=== PATIENT | male | born 1940 | race Caucasian/White ===

== ENCOUNTER 2021-07-08 12:04 | Emergency (ER) | payer OTHER ==
[2021-07-08 12:34] VITALS: BP 139/72; PULSE 95; BMI 20.3
[2021-07-08 13:14] LABS: BASO % 0.7 % (0-2.0); EOS % 1.6 % (0-4.5); HEMATOCRIT 36.3 % (35.4-49); HEMOGLOBIN 12.5 GM/dL (11.7-16.9); LYMPH % 13.4 % (8-40); MCHC 34.5 g/dl (32.0-35.9); MEAN CELL VOLUME 89.9 fl (80-96); MEAN PLT VOLUME 8.5 fl (7.5-11.1); NEUT % 75.3 % (42.8-82.8); PLATELET COUNT 171 10^3/uL (134-434); RBC 4.03 M/mm3 (4.00-5.60); RDW 14.3 % (11.9-15.9); WHITE BLOOD COUNT 5.8 K/mm3 (4.0-10.0)
[2021-07-08 13:38] LABS: CALCIUM 9.1 mg/dL (8.5-10.1)
[2021-07-08 13:39] LABS: ALBUMIN 3.8 g/dl (3.4-5.0)
[2021-07-08 13:43] LABS: BILIRUBIN,TOTAL 0.6 mg/dL (0.2-1); TOT PROT 7.2 g/dl (6.4-8.2)
[2021-07-08] MEDS ORDERED: SODIUM CHLORIDE 0.9% 1000 ML INFUS.BAG IV ONE (14:01)
[2021-07-08 14:41] LABS: PH,URINE 5.5 (5.0-8.0); URINE APPEARANCE CLEAR; URINE BILIRUBIN NEGATIVE (NEGATIVE); URINE COLOR YELLOW; URINE GLUCOSE (UA) NEGATIVE (NEGATIVE); URINE KETONE NEGATIVE (NEGATIVE); URINE LEUK ESTERASE NEGATIVE (NEGATIVE); URINE NITRITE NEGATIVE (NEGATIVE); URINE PROTEIN NEGATIVE (NEGATIVE); URINE UROBILINOGEN 0.2 mg/dL (0.2-1.0)
== END 2021-07-08 15:15 | disposition home or self-care (01) ==
LOC: JER 12:04
DX: S80.812A Abrasion, left lower leg, initial encounter (principal); W01.0XXA Fall on same level from slipping, tripping and stumbling without subsequent striking against object, initial encounter
CPT/HCPCS: 36415; 70450-TC; 72125-TC; 80053; 81003; 85025; 87086; 99285-25

== ENCOUNTER 2021-11-08 13:27 | Emergency (ER) | payer OTHER ==
[2021-11-08 13:36] VITALS: BP 126/60; PULSE 53; RESP 18; TEMP 97; BMI 20.9
== END 2021-11-08 15:45 | disposition home or self-care (01) ==
LOC: JERFT 13:27
DX: M25.511 Pain in right shoulder (principal); S50.01XA Contusion of right elbow, initial encounter; W01.0XXA Fall on same level from slipping, tripping and stumbling without subsequent striking against object, initial encounter
CPT/HCPCS: 70450-TC; 72125-TC; 73030-TC-RT-FY; 73070-TC-RT-FY; 99285-25

== ENCOUNTER 2022-05-16 10:40 | Observation (INO) | payer OTHER ==
[2022-05-16 11:14] VITALS: BMI 22.6
[2022-05-16] MEDS ORDERED: AZITHROMYCIN IVPB 500 MG in DEXTROSE 5%-WATER - 250 ML IVPB ONE (12:17)
[2022-05-16] MEDS ORDERED: CEFTRIAXONE 1,000 MG in DEXTROSE 5%-WATER - 50 ML IVPB ONE (12:17)
[2022-05-16 12:57] LABS: BASO % 0.1 % (0-2.0); HEMATOCRIT 37.4 % (35.4-49); MCH 30.5 pg (25.7-33.7); MCHC 34.6 g/dl (32.0-35.9); MEAN CELL VOLUME 88.1 fl (80-96); MEAN PLT VOLUME 8.9 fl (7.5-11.1); MONO % 6.9 % (3.8-10.2); PLATELET COUNT 159 10^3/uL (134-434); RBC 4.25 M/mm3 (4.00-5.60); RDW 14.1 % (11.9-15.9); WHITE BLOOD COUNT 8.7 K/mm3 (4.0-10.0)
[2022-05-16 13:21] LABS: ALBUMIN 3.3 g/dl (3.4-5.0); BLOOD UREA NITROGEN 29.4 mg/dL (7-18); CALCIUM 8.6 mg/dL (8.5-10.1); MAGNESIUM 2.1 mg/dL (1.8-2.4)
[2022-05-16 13:24] LABS: CREATININE 1.3 mg/dL (0.55-1.3)
[2022-05-16 13:26] LABS: BILIRUBIN,TOTAL 0.6 mg/dL (0.2-1)
[2022-05-16 13:30] LABS: LACTIC ACID 3.2 mmol/L (0.4-2.0)
[2022-05-16] MEDS ORDERED: SODIUM CHLORIDE 0.9% 1000 ML INFUS.BAG IV ONE ×2 (13:37→14:16)
[2022-05-16] MEDS ORDERED: CEFTRIAXONE 1 GM/50 ML BAG ONE (14:39)
[2022-05-16] MEDS ORDERED: AZITHROMYCIN IVPB 500 MG/250 ML BAG IVPB ONE (14:40)
[2022-05-16] MEDS ORDERED: IBUPROFEN 400 MG TABLET (FP) PO PRN (14:52)
[2022-05-16] MEDS ORDERED: guaiFENesin 200 MG/10 ML 10 ML UNIT-DOSE CUPS PO PRN (14:52)
[2022-05-16] MEDS ORDERED: LACTATED RINGERS SOLUTION 1,000 ML/1,000 ML INFUS.BAG IV SCH (15:00)
[2022-05-16 18:21] LABS: EPI CELLS 5 /uL (0-25.1); HYALINE CASTS 2 /uL (0-3.1); PH,URINE 5.5 (5.0-8.0); URINE APPEARANCE CLEAR; URINE BACTERIA 3 /uL (0-1359); URINE BILIRUBIN NEGATIVE (NEGATIVE); URINE COLOR DK YELLOW; URINE GLUCOSE (UA) NEGATIVE (NEGATIVE); URINE KETONE NEGATIVE (NEGATIVE); URINE LEUK ESTERASE NEGATIVE (NEGATIVE); URINE NITRITE NEGATIVE (NEGATIVE); URINE PROTEIN 1+ (NEGATIVE); URINE RBC 16 /uL (0-23.9); URINE UROBILINOGEN 0.2 mg/dL (0.2-1.0); URINE WBC 6 /uL (0-25.8)
[2022-05-16 18:51] LABS: LACTIC ACID 2.3 mmol/L (0.4-2.0)
[2022-05-16] MEDS: DOXYCYCLINE INJECTION 100 MG in DEXTROSE 5%-WATER 100 ML IVPB SCH (22:02)
[2022-05-17 08:58] LABS: BASO % 0.4 % (0-2.0); EOS % 1.4 % (0-4.5); HEMATOCRIT 32.8 % (35.4-49); HEMOGLOBIN 11.5 GM/dL (11.7-16.9); LYMPH % 15.6 % (8-40); MCH 30.9 pg (25.7-33.7); MCHC 35.2 g/dl (32.0-35.9); MEAN CELL VOLUME 87.7 fl (80-96); MEAN PLT VOLUME 8.9 fl (7.5-11.1); NEUT % 72.6 % (42.8-82.8); PLATELET COUNT 133 10^3/uL (134-434); RBC 3.74 M/mm3 (4.00-5.60); RDW 14.5 % (11.9-15.9); WHITE BLOOD COUNT 6.3 K/mm3 (4.0-10.0)
[2022-05-17 09:20] LABS: CALCIUM 7.9 mg/dL (8.5-10.1)
[2022-05-17 09:21] LABS: BLOOD UREA NITROGEN 19.9 mg/dL (7-18)
[2022-05-17 09:24] LABS: CREATININE 0.7 mg/dL (0.55-1.3)
[2022-05-17] MEDS: TAMSULOSIN HCL 0.4 MG CAP PO SCH (09:25)
[2022-05-17] MEDS: LORATADINE 10 MG TABLET PO SCH (09:25)
[2022-05-17] MEDS: FOLIC ACID 1 MG TABLET (FP) PO SCH (09:25)
[2022-05-17] MEDS: CEFTRIAXONE 1 GM in DEXTROSE 5%-WATER - 50 ML IVPB SCH (09:26)
[2022-05-17] MEDS: TOLTERODINE TARTRATE LA 4 MG CAP.SR.24H (FP) PO SCH (09:27)
[2022-05-17] MEDS: VITAMIN B COMPLEX W/C COMBO TABLET (FP) PO SCH (09:27)
[2022-05-17] MEDS ORDERED: BREXPIPRAZOLE 0.5 MG PO SCH (10:00)
[2022-05-17] MEDS: lamoTRIgine 100 MG TABLET PO SCH (10:14)
[2022-05-17] MEDS: DOXYCYCLINE INJECTION 100 MG in DEXTROSE 5%-WATER 100 ML IVPB SCH ×2 (10:19→21:50)
[2022-05-17] MEDS ORDERED: ALBUTEROL SO4 2.5/IPRATROPIUM 0.5 INH SOL 3 ML VIAL.NEB. NEB PRN (12:08)
[2022-05-17] MEDS ORDERED: POTASSIUM CHLORIDE ORAL LIQUID 20 MEQ/15 ML PO ONE (12:15)
[2022-05-17 18:35] VITALS: RESP 18
[2022-05-17] MEDS: HEPARIN NA (PORCINE) 5,000 UNITS/ML 1ML VIAL SQ SCH (21:49)
[2022-05-18 06:39] VITALS: BP 134/66; PULSE 66; TEMP 97.4
[2022-05-18] MEDS: FOLIC ACID 1 MG TABLET (FP) PO SCH (10:16)
[2022-05-18] MEDS: HEPARIN NA (PORCINE) 5,000 UNITS/ML 1ML VIAL SQ SCH (10:16)
[2022-05-18] MEDS: DOXYCYCLINE INJECTION 100 MG in DEXTROSE 5%-WATER 100 ML IVPB SCH (10:16)
[2022-05-18] MEDS: VITAMIN B COMPLEX W/C COMBO TABLET (FP) PO SCH (10:16)
[2022-05-18] MEDS: TOLTERODINE TARTRATE LA 4 MG CAP.SR.24H (FP) PO SCH (10:16)
[2022-05-18] MEDS: CEFTRIAXONE 1 GM in DEXTROSE 5%-WATER - 50 ML IVPB SCH (10:16)
[2022-05-18] MEDS: LORATADINE 10 MG TABLET PO SCH (10:17)
[2022-05-18] MEDS: lamoTRIgine 100 MG TABLET PO SCH (10:17)
[2022-05-18] MEDS: TAMSULOSIN HCL 0.4 MG CAP PO SCH (10:17)
== END 2022-05-18 14:44 | disposition home or self-care (01) ==
LOC: JER 10:40 → JERBED 13:42 → J5S 18:37
PROVIDERS: ADMIT Internal Medicine; ATTEND Internal Medicine
PROC: 3E03329 Introduction of Other Anti-infective into Peripheral Vein, Percutaneous Approach (ICD-10-PCS; principal; 2022-05-16)
PROC: 3E023GC Introduction of Other Therapeutic Substance into Muscle, Percutaneous Approach (ICD-10-PCS; 2022-05-16)
PROC: 3E0337Z Introduction of Electrolytic and Water Balance Substance into Peripheral Vein, Percutaneous Approach (ICD-10-PCS; 2022-05-16)
DX: R55 Syncope and collapse (principal); R11.10 Vomiting, unspecified; E86.0 Dehydration; E87.20 Acidosis, unspecified; F81.9 Developmental disorder of scholastic skills, unspecified; R09.02 Hypoxemia
CPT/HCPCS: 0241U-QW; 36415; 71045-TC-FY; 80048; 80053; 81003; 83605; 83690; 83735; 84484; 85025; 87040; 87086; 87899; 93005; 93010; 96361; 96365; 96366; 96367; 96368; 96372; 97116-GP; 97162-GP; 99284-25; C9803-CS; G0378; J1644; U0003; U0005

== ENCOUNTER 2022-10-24 13:39 | Emergency (ER) | payer OTHER ==
[2022-10-24 13:55] VITALS: RESP 18; TEMP 97.7; BMI 21.2
[2022-10-24 18:22] VITALS: BP 115/75; PULSE 62
== END 2022-10-24 18:22 | disposition home or self-care (01) ==
LOC: JER 13:39
DX: S00.83XA Contusion of other part of head, initial encounter (principal); W01.0XXA Fall on same level from slipping, tripping and stumbling without subsequent striking against object, initial encounter; Y92.002 Bathroom of unspecified non-institutional (private) residence as the place of occurrence of the external cause
CPT/HCPCS: 70450-TC; 70486-TC; 71045-TC-FY; 72070-TC-FY; 72100-TC-FY; 72125-TC; 72170-TC-FY; 73521-TC-FY; 73562-TC-LT-FY; 73562-TC-RT-FY; 93005; 93010; 99285-25

== ENCOUNTER 2024-02-17 15:48 | Emergency (ER) | payer OTHER ==
[2024-02-17 16:00] VITALS: RESP 16; TEMP 97.8; BMI 25.2
[2024-02-17 20:17] VITALS: BP 110/78; PULSE 65
== END 2024-02-17 20:17 | disposition home or self-care (01) ==
LOC: JER 15:48
DX: S01.01XA Laceration without foreign body of scalp, initial encounter (principal); S80.812A Abrasion, left lower leg, initial encounter; S00.12XA Contusion of left eyelid and periocular area, initial encounter; W01.198A Fall on same level from slipping, tripping and stumbling with subsequent striking against other object, initial encounter
CPT/HCPCS: 70450-TC; 70486-TC; 72125-TC; 99284-25

== ENCOUNTER 2024-06-15 12:33 | Emergency (ER) | payer OTHER ==
[2024-06-15 12:43] VITALS: RESP 16; TEMP 97.7; BMI 29.0
[2024-06-15] MEDS ORDERED: ACETAMINOPHEN 325 MG TABLET (FP) ONE (13:55)
[2024-06-15] MEDS: ACETAMINOPHEN 500 MG TABLET (FP) PO ONE (14:08)
[2024-06-15 15:13] VITALS: BP 121/76; PULSE 74
== END 2024-06-15 21:30 | disposition home or self-care (01) ==
LOC: JER 12:33
DX: S80.01XA Contusion of right knee, initial encounter (principal); W01.0XXA Fall on same level from slipping, tripping and stumbling without subsequent striking against object, initial encounter
CPT/HCPCS: 73502-TC-RT-FY; 73562-TC-RT-FY; 73700-TC-RT; 99284-25

== ENCOUNTER 2024-08-17 19:59 | Inpatient (IN) | payer OTHER ==
[2024-08-17 20:15] VITALS: BMI 21.6
[2024-08-17] MEDS ORDERED: ACETAMINOPHEN INJECTION 100 ML ONE (21:05)
[2024-08-17] MEDS: ACETAMINOPHEN 1000 MG/100 ML BAG IVPB ONE (21:08)
[2024-08-17 21:09] LABS: BG HCT 39.0 % (35.4-49); VENOUS BASE EXCESS 2.6 mmol/L (-2-2); VENOUS O2 SATURATION 53.0 % (70-80); VENOUS PCO2 27.9 mmHg (38-52); VENOUS PH 7.552 (7.310-7.410)
[2024-08-17] MEDS: SODIUM CHLORIDE 1,000 ML IV STA (21:09)
[2024-08-17 21:10] LABS: ABSOLUTE IMMATURE GRANULOCYTES 0.06 x10^3/uL (0.0-0.031); BASOPHILS # 0.04 x10^3/uL (0.01-0.08); EOSINOPHIL % 0.1 % (0.8-7.0); EOSINOPHILS # 0.01 x10^3/uL (0.04-0.54); MCHC 34.4 g/dl (32.3-36.5); MEAN CELL VOLUME 88.9 fl (79.0-92.2); MEAN PLT VOLUME 10.7 fl (9.4-12.4); MONOCYTE # 0.90 x10^3/uL (0.30-0.82); MONOCYTE % 7.2 % (5.3-12.2); RDW 14.0 % (12.6-16.6)
[2024-08-17 21:21] LABS: CO2 23.0 mmol/L (21-32); INR 1.16 (0.83-1.09); PROTHROMBIN TIME (PATIENT) 12.8 SEC (9.7-13.0)
[2024-08-17 21:22] LABS: GLUCOSE,RANDOM 146.0 mg/dL (74-106)
[2024-08-17 21:23] LABS: ACTIVATED PTT 26.4 SECONDS (25.2-36.5)
[2024-08-17 21:26] LABS: CREATININE 1.1 mg/dL (0.55-1.3); SGOT/AST 31.0 U/L (15-37); SGPT/ALT 33.0 U/L (13-61)
[2024-08-17 21:27] LABS: TOT PROT 7.5 g/dl (6.4-8.2)
[2024-08-17 21:28] LABS: ALK PHOS 145.0 U/L (45-117)
[2024-08-17 22:15] LABS: HCV DIAGNOSTIC IN-HOUSE W/RFLX NON-REACTIVE (NONREACTIVE); HIV INTERPRETATION NEGATIVE (NEGATIVE)
[2024-08-17] MEDS ORDERED: AZITHROMYCIN 500 MG TABLET ONE (23:01)
[2024-08-17] MEDS ORDERED: CEFTRIAXONE 1 GM/50 ML BAG ONE (23:02)
[2024-08-17] MEDS: AZITHROMYCIN 250 MG TABLET PO ONE (23:10)
[2024-08-17] MEDS ORDERED: ACETAMINOPHEN 1000 MG/100 ML BAG IVPB PRN (23:23)
[2024-08-18 00:15] LABS: EPI CELLS 15 /uL (0-25.1); HYALINE CASTS 0 /uL (0-3.1); URINE APPEARANCE CLEAR; URINE BACTERIA 2427 /uL (0-1359); URINE BILIRUBIN NEGATIVE (NEGATIVE); URINE COLOR YELLOW; URINE GLUCOSE (UA) NEGATIVE (NEGATIVE); URINE KETONE TRACE (NEGATIVE); URINE LEUK ESTERASE 1+ (NEGATIVE); URINE NITRITE NEGATIVE (NEGATIVE); URINE PROTEIN NEGATIVE (NEGATIVE); URINE RBC 9 /uL (0-23.9); URINE UROBILINOGEN 1.0 mg/dL (0.2-1.0); URINE WBC 72 /uL (0-25.8)
[2024-08-18] MEDS ORDERED: PIPERACILLIN/TAZOB 3.375 GM 3.375 GM/50 ML BAG IVPB ONE (02:03)
[2024-08-18] MEDS: PIPERACILLIN/TAZOB 3.375 GM 3.375 GM/50 ML BAG IVPB SCH (02:21)
[2024-08-18] MEDS: SODIUM CHLORIDE 1,000 ML IV STA (02:21)
[2024-08-18] MEDS: INSULIN ASPART SLIDING SCALE (NOVOLOG) 1 VIAL SQ SCH (06:28)
[2024-08-18 09:52] LABS: ABSOLUTE IMMATURE GRANULOCYTES 0.07 x10^3/uL (0.0-0.031); BASOPHILS # 0.05 x10^3/uL (0.01-0.08); EOSINOPHIL % 0.1 % (0.8-7.0); EOSINOPHILS # 0.02 x10^3/uL (0.04-0.54); MCHC 34.5 g/dl (32.3-36.5); MEAN CELL VOLUME 89.1 fl (79.0-92.2); MEAN PLT VOLUME 11.3 fl (9.4-12.4); MONOCYTE # 1.12 x10^3/uL (0.30-0.82); MONOCYTE % 7.4 % (5.3-12.2); RDW 13.9 % (12.6-16.6)
[2024-08-18] MEDS ORDERED: CEFTRIAXONE 1 GM in DEXTROSE 5%-WATER - 50 ML IVPB SCH (10:00)
[2024-08-18] MEDS ORDERED: AZITHROMYCIN IVPB 500 MG in DEXTROSE 5%-WATER - 250 ML IVPB SCH (10:00)
[2024-08-18] MEDS: BREXPIPRAZOLE (REXULTI) 1 MG TABLET (RESTRICTED TO PSYCIATRY) PO SCH (10:00)
[2024-08-18] MEDS: ENOXAPARIN NA (PORCINE) 40 MG/0.4 ML DISP.SYRIN SQ SCH (10:07)
[2024-08-18] MEDS: PIPERACILLIN/TAZOB 3.375 GM 3.375 GM in DEXTROSE 5%-WATER - 50 ML IVPB SCH ×2 (10:07→17:26)
[2024-08-18] MEDS: FOLIC ACID 1 MG TABLET (FP) PO SCH (10:10)
[2024-08-18] MEDS: ASPIRIN COATED 81 MG TABLET.EC PO SCH (10:10)
[2024-08-18] MEDS: TOLTERODINE TARTRATE LA 4 MG CAP.SR.24H (FP) PO SCH (10:10)
[2024-08-18] MEDS: TAMSULOSIN HCL 0.4 MG CAP PO SCH (10:10)
[2024-08-18] MEDS: ESCITALOPRAM OXALATE 20 MG TABLET PO SCH (10:10)
[2024-08-18] MEDS: VITAMIN B COMPLEX W/C COMBO TABLET (FP) PO SCH (10:11)
[2024-08-18 10:31] LABS: ALK PHOS 111.0 U/L (45-117)
[2024-08-18 10:32] LABS: CO2 21.0 mmol/L (21-32); GLUCOSE,RANDOM 114.0 mg/dL (74-106)
[2024-08-18 10:35] LABS: CREATININE 0.8 mg/dL (0.55-1.3); SGPT/ALT 25.0 U/L (13-61)
[2024-08-18 10:36] LABS: SGOT/AST 29.0 U/L (15-37)
[2024-08-18 10:37] LABS: TOT PROT 6.0 g/dl (6.4-8.2)
[2024-08-18] MEDS: SODIUM CHLORIDE 1,000 ML IV SCH (12:37)
[2024-08-18] MEDS: POTASSIUM CHLORIDE ORAL LIQUID 20 MEQ/15 ML PO ONE (14:58)
[2024-08-18] MEDS: PATIENT'S OWN MEDICATION (NON-FORMULARY) (Mirabegron [Myrbetriq] 50 MG Tab.Er.24h) PO SCH (15:55)
[2024-08-18] MEDS: MIRABEGRON 25 MG PO SCH (17:31)
[2024-08-19 09:30] LABS: ABSOLUTE IMMATURE GRANULOCYTES 0.03 x10^3/uL (0.0-0.031); BASOPHILS # 0.05 x10^3/uL (0.01-0.08); EOSINOPHIL % 1.9 % (0.8-7.0); EOSINOPHILS # 0.19 x10^3/uL (0.04-0.54); MCHC 34.0 g/dl (32.3-36.5); MEAN CELL VOLUME 90.8 fl (79.0-92.2); MEAN PLT VOLUME 11.1 fl (9.4-12.4); MONOCYTE # 0.89 x10^3/uL (0.30-0.82); MONOCYTE % 8.9 % (5.3-12.2); RDW 14.2 % (12.6-16.6)
[2024-08-19 10:40] LABS: CO2 23.0 mmol/L (21-32); GLUCOSE,RANDOM 83.0 mg/dL (74-106)
[2024-08-19 10:42] LABS: CREATININE 0.7 mg/dL (0.55-1.3); SGPT/ALT 27.0 U/L (13-61)
[2024-08-19 10:43] LABS: SGOT/AST 33.0 U/L (15-37)
[2024-08-19 10:44] LABS: TOT PROT 6.2 g/dl (6.4-8.2)
[2024-08-19 10:45] LABS: ALK PHOS 109.0 U/L (45-117)
[2024-08-19] MEDS: POTASSIUM CHLORIDE ORAL LIQUID 20 MEQ/15 ML PO ONE (12:27)
[2024-08-19] MEDS: SODIUM CHLORIDE 1,000 ML IV SCH (17:21)
[2024-08-20] MEDS ORDERED: PIPERACILLIN/TAZOB 3.375 GM 3.375 GM/50 ML BAG IVPB SCH (02:00)
[2024-08-20 09:19] LABS: ABSOLUTE IMMATURE GRANULOCYTES 0.05 x10^3/uL (0.0-0.031); BASOPHILS # 0.06 x10^3/uL (0.01-0.08); EOSINOPHIL % 1.2 % (0.8-7.0); EOSINOPHILS # 0.11 x10^3/uL (0.04-0.54); MCHC 34.3 g/dl (32.3-36.5); MEAN CELL VOLUME 90.0 fl (79.0-92.2); MEAN PLT VOLUME 11.6 fl (9.4-12.4); MONOCYTE # 0.88 x10^3/uL (0.30-0.82); MONOCYTE % 9.7 % (5.3-12.2); RDW 14.2 % (12.6-16.6)
[2024-08-20 09:59] LABS: GLUCOSE,RANDOM 128.0 mg/dL (74-106)
[2024-08-20 10:00] LABS: CO2 23.0 mmol/L (21-32)
[2024-08-20 10:02] LABS: CREATININE 1.0 mg/dL (0.55-1.3); SGOT/AST 40.0 U/L (15-37); SGPT/ALT 35.0 U/L (13-61)
[2024-08-20 10:04] LABS: TOT PROT 6.8 g/dl (6.4-8.2)
[2024-08-20 10:12] VITALS: BP 129/91; PULSE 101; RESP 18; TEMP 97.9
[2024-08-20 10:16] LABS: ALK PHOS 143.0 U/L (45-117)
== END 2024-08-20 15:45 | disposition home or self-care (01) | DRG 178 ==
LOC: JER 19:59 → JERBED 21:48 → J5S 08-18 03:49 → OBSVTOIN 08-18 14:00
PROVIDERS: ADMIT Internal Medicine
DX: J69.0 Pneumonitis due to inhalation of food and vomit (principal); F84.0 Autistic disorder; N39.0 Urinary tract infection, site not specified; E11.9 Type 2 diabetes mellitus without complications; I10 Essential (primary) hypertension; D64.9 Anemia, unspecified; F79 Unspecified intellectual disabilities; N40.0 Benign prostatic hyperplasia without lower urinary tract symptoms
CPT/HCPCS: 36415; 71045-TC-FY; 71250-TC; 80053; 81003; 82803; 82962; 83605; 83735; 84100; 84484; 85025; 85610; 85730; 86803; 86850; 86900; 86901; 87040; 87081; 87086; 87389; 87637-QW; 87899; 93005; 93010; 97116-GP; 97161-GP; 99285-25; G0378

== ENCOUNTER 2024-08-25 09:01 | Emergency (ER) | payer OTHER ==
[2024-08-25 09:07] VITALS: BP 147/91; PULSE 89; RESP 18; TEMP 97.3; BMI 21.6
== END 2024-08-25 12:48 | disposition home or self-care (01) ==
LOC: JER 09:01
DX: Z04.3 Encounter for examination and observation following other accident (principal); W01.0XXA Fall on same level from slipping, tripping and stumbling without subsequent striking against object, initial encounter
CPT/HCPCS: 72170-TC-FY; 73521-TC-FY; 82962; 93005; 93010; 99285-25